=== PATIENT | male | born 1940 | race Caucasian/White ===

== ENCOUNTER 2020-03-21 09:32 | Outpatient (RCR) | payer MEDICARE, SELFPAY ==
[2014-08-19 12:45] VITALS: BMI 61.7
== END 2020-03-21 23:59 ==
LOC: IMMUN 09:32
PROVIDERS: PCP Internal Medicine; Visit Provider Family Medicine
DX: Z23 Encounter for immunization (principal)
CPT/HCPCS: 0011A; 0012A

== ENCOUNTER 2022-05-14 21:33 | Emergency (ER) | payer MEDICARE, SELFPAY ==
[2022-05-14 23:16] VITALS: TEMP -17.7; TEMP 0; BMI 27.3
--- NOTE | 2022-05-14 23:48 | EDS_ITS ---
HPI History of Present Illness Chief Complaint: CPR Informant: EMS Onset/Context/Timing Onset: Today Narrative Narrative: Family called EMS on this patient for a syncopal episode. EMS states that he was responsive, able to converse with them, they put him in ambulance, in route they did an EKG, they transmitted it, it appeared to show some lateral ST depressions but no criteria for STEMI, and upon pulling into the EMS bay at the hospital here, they state that the patient suddenly clutched his chest and then lost consciousness and was pulseless, they started CPR immediately and continued it upon arrival here at the hospital where a [facility] was called and we met the patient and squad in the room. Other than a history of hypertension there is no other history available at the time. [facility] Medical History (Updated 05/15/22 @ 00:[address] Terrell Mayo MD) HTN (hypertension) Allergy/AdvReac Type Severity Reaction Status Date / Time shellfish derived Allergy Unknown Verified 08/19/14 12:45 atropine sulfate AdvReac Unknown Verified 08/19/14 12:45 [From Lomotil] diphenoxylate HCl AdvReac Unknown Verified 08/19/14 12:45 [From Lomotil] montelukast sodium AdvReac Unknown Verified 08/19/14 12:45 [From Singulair] Surgical History unable to obtain unable to obtain Social History (Updated 05/14/22 @ 23:[address] Terrell Mayo MD) household members: spouse Smoking Status: Former smoker ROS ROS ED Review of Systems ROS Unobtainable: due to mental status EXAM Physical Exam Const Vital Signs: 05/14/22 23:16 Temperature 0 F L Temperature Source Temporal Positive well nourished and well developed General Appearance ED: well developed and pallor Orientation / Consciousness: obtunded Exam Limitations: altered mental status HEENT normocephalic, atraumatic and cyanosis of lips/distal nose Eyes Pupil: fixed Positive for bilateral and not reactive Positive for bilateral Neck supple Resp Resp Narrative: No spontaneous respirations. Breath sounds are bilaterally with bagging. Cardio Cardio Narrative: No heart sounds. Central pulses palpable with CPR only. GI non-distended Palpation: soft Neuro Neuro Narrative: Obtunded and flaccid x4. GCS 3. With CPR, patient has rare attempt at spontaneous shallow breath. Skin General Skin Exam: pallor Lesions: no lesions Rashes: no rashes MDM MDM MDM Narrative Medical decision making narrative: I supervised ACLS at the bedside, in addition I intubated the patient see the procedure note. We continued CPR taking over for EMS, once we obtained IV access we gave epinephrine 1 mg and after the first pulse check, the patient was pulseless electrical activity. Multiple rounds of ACLS were performed, and each time the rhythm was PEA at pulse check. Total of 3 mg of epinephrine were provided, and each time he had PEA no higher than 30s, and in addition to epinephrine he was given IV fluid bolus, sodium bicarb, calcium gluconate IV, each of the latter 1 amp. After all of this and no signs of spontaneous return of circulation, I performed a bedside ultrasound. There is no pericardial effusion or signs of tamponade, there is barely an agonal squeeze of the myocardium with each agonal rare beat on the monitor. My suspicion is that the patient had a large myocardial infarction given the history. With CPR, we could palpate crepitance from multiple likely rib fractures. At this time I think further efforts would be futile. The [facility] team was in agreement. Time of declared at 2146. Staff discussed with on-call PCP and deputy director of nursing who released body. Discussed with family members subsequently, who stated the patient had not been feeling well for some time, had had some dyspnea off-and-on and normal PFTs recently prior to this occurring. History & Record Review Discussion w/independent historian: EMS personnel and Family (Later) Additional record(s) reviewed:: No prior records Procedures Intubations Intubation Method: orotracheal (7.5F ETT, visualized passing through the cords during direct laryngoscopy with a MAC 3 blade after suctioning some brown substance from the posterior pharynx, no blood or trauma; secured at 22 cm at the lip) Intubation Verification: Positive color change and Bilateral breath sounds confirmed Intubation Complications: no complications Critical Care Time Critical Care Time: Yes Critical care time (excluding procedures): 30-74 minutes (45 min, not including procedure time), Including time spent:, Discussing w/Patient &/or Family/Workers Compensation Consultant (Family) and Performing Direct Patient Care at Bedside (Supervising ACLS) Discharge Plan Triage Chief Complaint: CPR ED Provider: Terrell Mayo Dx/Rx/DC Orders Clinical Impression: Cardiopulmonary arrest, Syncope and collapse, Acute myocardial infarction Primary Care Provider: Annette Houston Referrals: Annette Houston MD [Primary Care Provider] - Disposition Disposition:
== END 2022-05-14 23:50 ==
PROVIDERS: Emergency Provider Emergency Medicine; PCP Internal Medicine; Visit Provider Emergency Medicine
DX: I46.9 Cardiac arrest, cause unspecified (principal); I21.9 Acute myocardial infarction, unspecified; R55 Syncope and collapse; Z87.891 Personal history of nicotine dependence
CPT/HCPCS: 92950; 99281; 99291; J7030; A4216